=== PATIENT | male | born 1995 | race Caucasian/White ===

== ENCOUNTER 2020-08-19 20:13 | Emergency (ER) | payer SELFPAY ==
[2020-08-19] MEDS ORDERED: IBUPROFEN 800 MG TABLET PO ONE (20:31)
--- NOTE | 2020-08-19 20:34 | ER Document Report ---
ED Medical Screen (RME) - General Chief Complaint: Ankle Injury Stated Complaint: FALL/LEFT ANKLE INJURY Time Seen by Provider: 08/19/20 20:21 Mode of Arrival: Wheelchair Information source: Patient Notes: 24-year-old male presented to ED for injury to the left foot and ankle. He states he was at the [facility] when he fell with treatment of the area and the left ankle came down first and when he came down he heard a crunch. He states that happened between 730 and 745. He states the patient advocate from the ER was at the [facility] and brought him to the emergency room after he fell. He states he smokes 1 cigarette a week he binge drinks maybe once a month and does occasionally use marijuana. He has a past medical history of high blood pressure asthma and ADHD. He states his pain is a 2/5 when he is sitting and not moving it in a 4/5 if he touches it or puts any pressure on it. Patient is alert oriented respirations regular nonlabored speaking in full sen tences. I have greeted and performed a rapid initial assessment of this patient. A comprehensive ED assessment and evaluation of the patient, analysis of test results and completion of medical decision making process will be conducted by an additional ED providers. TRAVEL OUTSIDE OF THE [place] IN LAST 30 DAYS: No - HPI Onset: Just prior to arrival Onset/Duration: Sudden Quality of pain: Sharp, Throbbing Severity: Moderate Pain Level: 4 Associated Symptoms: Other - Pain swelling deformity left ankle Exacerbated by: Movement Similar symptoms previously: No Recently seen / treated by doctor: No - Related Data Allergies/Adverse Reactions: cat dander Allergy (Verified 08/19/20 20:29) grass pollen Allergy (Verified 08/19/20 20:29) dust Allergy (Uncoded 08/19/20 20:29) Past Medical History - Social History Frequency of alcohol use: Social Drug Abuse: Marijuana Renal/ Medical History: Denies: Hx Peritoneal Dialysis - Immunizations Immunizations up to date: Yes Hx Diphtheria, Pertussis, Tetanus Vaccination: Yes Physical Exam - Vital signs Vitals: Temp Pulse Resp BP Pulse Ox 99.4 F 100 12 145/87 H 98 08/19/20 20:23 08/19/20 20:23 08/19/20 20:23 08/19/20 20:23 08/19/20 20:23 Course - Vital Signs Vital signs: Temp Pulse Resp BP Pulse Ox 99.4 F 100 12 145/87 H 98 08/19/20 20:23 08/19/20 20:23 08/19/20 20:23 08/19/20 20:23 08/19/20 20:23
--- NOTE | 2020-08-19 21:18 | ER Document Report ---
ED Extremity Problem, Lower - General Chief Complaint: Ankle Injury Stated Complaint: FALL/LEFT ANKLE INJURY Time Seen by Provider: 08/19/20 20:21 Primary Care Provider: KAYLIN KEARNS MD [ACTIVE STAFF] - Follow up as needed CARSON HOLLIDAY MD [Primary Care Provider] - Follow up as needed Mode of Arrival: Wheelchair TRAVEL OUTSIDE OF THE [place] IN LAST 30 DAYS: No - HPI Notes: 24-year-old male presents with injury to his left ankle. Patient states that he was rollerskating this evening, around 7:30 PM. He states that he pushed off on his right leg, however his leg went too far, causing him to fall with his left ankle turning under him, states that he landed onto his left ankle and heard a crunch, then landed onto his buttocks. He denies head injury, no loss of consciousness. He denies injury to upper extremities or right leg. He complains of pain to the left ankle, worse when he has to to move it. He states that he has a past medical history of elevated blood pressure, but his doctor has told him to just lose weight, he is recently lost 15 pounds. He has history of childhood asthma and ADHD. - Related Data Allergies/Adverse Reactions: cat dander Allergy (Verified 08/19/20 20:29) grass pollen Allergy (Verified 08/19/20 20:29) dust Allergy (Uncoded 08/19/20 20:29) Past Medical History - General Information source: Patient - Social History Smoking Status: Current Some Day Smoker Frequency of alcohol use: Social Drug Abuse: Marijuana Family History: Reviewed & Not Pertinent - Past Medical History Cardiac Medical History: Reports: Hx Hypertension Pulmonary Medical History: Reports: Hx Asthma Renal/ Medical History: Denies: Hx Peritoneal Dialysis Psychiatric Medical History: Reports: Hx Attention Deficit Hyperactivity Disorder - Immunizations Immunizations up to date: Yes Hx Diphtheria, Pertussis, Tetanus Vaccination: Yes Review of Systems - Review of Systems Constitutional: No symptoms reported EENT: No symptoms reported Cardiovascular: No symptoms reported Gastrointestinal: No symptoms reported Genitourinary: No symptoms reported Male Genitourinary: No symptoms reported Musculoskeletal: See HPI Skin: Other - No wound Neurological/Psychological: denies: Weakness, Numbness Physical Exam - Vital signs Vitals: Temp Pulse Resp BP Pulse Ox 99.4 F 100 12 145/87 H 98 10/01/20 20:23 08/19/20 20:23 08/19/20 20:23 08/19/20 20:23 08/19/20 20:23 - General General appearance: Appears well, Alert In distress: None - HEENT Head: Normocephalic, Atraumatic Extraocular movements intact: Yes Pupils: PERRL Neck: Normal - Respiratory Breath sounds: Normal - Cardiovascular Rhythm: Regular Heart sounds: Normal auscultation Pulses: Normal: Dorsalis pedis Normal capillary refill: Yes - Abdominal Inspection: Obese Tenderness: Nontender - Extremities General upper extremity: Normal inspection, Normal ROM Notes: Pelvis stable. No tenderness to right lower extremity. There is swelling and deformity to the left ankle, there is tenderness to the medial lateral aspects. No tenderness to the L foot. No tenderness to the L knee. He has preserved range of motion of L foot and knee, decreased range of motion ankle. - Neurological Neuro grossly intact: Yes Cognition: Normal Orientation: AAOx4 - Psychological Associated symptoms: Normal affect - Skin Skin Temperature: Warm Notes: There is no wound to the left lower extremity Course - Re-evaluation Re-evalutation: 24-year-old male injured left ankle during a rollerskating accident. On exam he has a deformity to the left ankle with decreased range of motion, he has preserved pulse and normal cap refill. Intact range of motion to the left foot and knee. Foot/ankle imaging ordered via triage. I have preliminary reviewed the images and appears multiple fractures present, patient updated, I have added on a complete tib-fib view to assess for any proximal injury. Fentanyl ordered for pain. Will need sedation/reduction, then Ortho consult as it appears to be trimalleolar. 08/19/20 22:40 X-ray had confirmed a trimalleolar fracture. Patient underwent conscious sedation with fracture/dislocation reduction. Ankle stirrup splint applied, patient tolerated well. Repeat films ordered, appears to be successful. Will touch base with Ortho. 08/19/20 23:04 Hospital steam shovel operator to page on-call orthopedics 08/19/20 23:[address] Kearns and reviewed images. He has requested a CT of the ankle before discharge, patient can follow-up in his office. 08/20/20 00:00 Patient has returned to normal baseline. His brother is at bedside to take him home. I again we discussed with him need to follow-up with orthopedic surgery. Patient expressed that he may not be able to have transportation to [place], I will provide orthopedic contact information for [facility] practices in his discharge papers. I discussed with him nonweightbearing, use of crut ches, pain medications. He and his brother verbalized understanding. Patient to be provided with CD of imaging from today. Return precautions given, patient stable at time of discharge. - Vital Signs Vital signs: Temp Pulse Resp BP Pulse Ox 99.4 F 110 H 13 199/94 H 100 08/19/20 20:23 08/19/20 22:25 08/19/20 22:40 08/19/20 22:40 08/19/20 22:40 - Diagnostic Test Radiology reviewed: Image reviewed, Reports reviewed Procedures - Conscious Sedation Conscious sedation Time started: 22:10 Time completed: 22:30 Consent obtained: Yes Indication: Fracture reduction Last meal: Greater than 2 hours Normal healthy pt.: P1. - ASA Classification Airway Evaluation: Normal anatomy Mallampati Classification: Class 1 Used during procedure: Suction available, IV access obtained, Pulse ox on pt., bus monitor on pt. Medications administered: Ketamine I personally performed/intraservice time: Sedation, Procedure, 30 min or less Complications: No - Joint Reduction/Fracture Care Left Ankle Time completed: 22:30 Consent obtained: Yes Conscious sedation: Yes Pre-procedure NV exam: Yes Fracture: Closed Post-procedure NV exam: Yes Post-reduction x-ray: Joint reduced Reduction attempts: 1 Complications: No Notes: Once adequate sedation had been achieved, a combination of traction, downward force on tibial and upward force on the foot achieved reduction Discharge - Discharge Clinical Impression: Injury while roller skating Trimalleolar fracture of ankle, closed Qualifiers: Encounter type: initial encounter Laterality: left Qualified Code(s): S82.852A - Displaced trimalleolar fracture of left lower leg, initial encounter for closed fracture Disposition: HOME, SELF-CARE Instructions: Ankle Stirrup Splint ([facility]), Use of Crutches ([facility]), Oral Narcotic Medication ([facility]), Post Sedation Instructions ([facility]) Additional Instructions: Do not put any weight onto your left leg, use crutches at all time. While at rest, elevate leg. Use pain medication as needed. Please call Dr. Kearns's office in the morning to discuss follow-up. I have also provided contact information for orthopedics located in [place] if you are unable to travel to [place]. [facility]: [address] [place] [address] Toll-Free: [phone] Office: [phone] [facility] [place]: [address] [place] [address] Hours: 8am-5pm, Mon-; 8am-12pm, Fri (1st floor); [phone] (2nd floor) Toll Free: [phone] Prescriptions: Ibuprofen [Ibu] 800 mg PO Q8H #60 tablet Hydrocodone/Acetaminophen [[place]em 5-325 mg Tablet] 1 tab PO Q4H PRN 5 Days #30 tablet PRN Reason: For Pain Referrals: CARSON HOLLIDAY MD [Primary Care Provider] - Follow up as needed KAYLIN KEARNS MD [ACTIVE STAFF] - Follow up as needed
--- NOTE | 2020-08-19 21:26 | RADIOLOGY REPORT (SQ) ---
EXAM DESCRIPTION: XR ANKLE 3 OR MORE VIEWS COMPLETED DATE/TME: 08/19/2020 20:31 CLINICAL HISTORY: 24 years Male ,Fall left ankle injury deformity COMPARISON: None. TECHNIQUE: Left ankle, 3 view FINDINGS: Displaced fracture of the distal fibular diaphysis with valgus angulation. There is widening of the tibiofibular syndesmosis. Fracture of the medial malleolus and posterior malleolus. Additional fracture line extending along the distal tibia in the lateral projection likely is the adjacent fibular fracture. There is soft tissue swelling and joint effusion. There is posterior and lateral subluxation and eversion of the ankle. IMPRESSION: Fracture of the medial and posterior malleolus and the distal fibular diaphysis with posterior lateral displacement and angulation Widening of the tibiofibular syndesmosis
--- NOTE | 2020-08-19 21:28 | RADIOLOGY REPORT (SQ) ---
EXAM DESCRIPTION: XR FOOT 3 OR MORE VIEWS COMPLETED DATE/TME: 08/19/2020 20:31 CLINICAL HISTORY: 24 years ,Male Fall left ankle injury deformity COMPARISON: None. TECHNIQUE: LEFT foot, Three view FINDINGS: There is a fracture of the posterior and the medial malleolus. There is posterior and lateral subluxation of the foot and the distal fracture fragments. Widening of the tibiofibular syndesmosis. Fracture of the distal fibular diaphysis. IMPRESSION: Trimalleolar fracture subluxation with widening of the tibiofibular syndesmosis and posterior lateral displacement of the foot and the distal fracture fragments with respect to the distal tibia
[2020-08-19] MEDS ORDERED: FENTANYL CITRATE INJ/PF 100 MCG/2 ML AMPUL IV ONE (21:30)
[2020-08-19] MEDS ORDERED: KETAMINE HCL INJ 500 MG/10 ML VIAL IV ONE (22:05)
--- NOTE | 2020-08-19 22:08 | RADIOLOGY REPORT (SQ) ---
EXAM DESCRIPTION: XR TIBIA FIBULA 2 VIEWS COMPLETED DATE/TME: 08/19/2020 21:18 CLINICAL HISTORY: 24 years, Male, Known distal fracture, evaluate fibular head fxc COMPARISON: None. NUMBER OF VIEWS: 2 TECHNIQUE: 2 views left tibia fibula LIMITATIONS: None. FINDINGS: Comminuted fracture of the distal fibular diaphysis. Negative for proximal tibia or fibula fracture. Fracture deformities of the posterior and medial malleoli better seen on dedicated ankle films. IMPRESSION: Distal tibia/fibular fractures. No acute osseous abnormality involving the proximal tibia or fibula copyright 2010 [employer]- All Rights Reserved
--- NOTE | 2020-08-19 23:25 | RADIOLOGY REPORT (SQ) ---
CLINICAL HISTORY: POST REDUCTION COMPARISON: Earlier the same night. TECHNIQUE: XR ANKLE 2 VIEWS 08/19/2020 12:00 AM CDT FINDINGS: There is a persistent mildly displaced fracture of the medial malleolus. There is slightly improved alignment of distal fibular fracture. There has been reduction of tibiotalar subluxation. Soft tissues are unremarkable. IMPRESSION: Improved alignment following reduction.
--- NOTE | 2020-08-19 23:57 | RADIOLOGY REPORT (SQ) ---
EXAM DESCRIPTION: CT LOWER EXTREMITY WITHOUT IV CONTRAST COMPLETED DATE/TME: 08/19/2020 23:11 CLINICAL HISTORY: 24 years, Male, CT ankle, trimalleolar status post reduction COMPARISON: Plain films today's date TECHNIQUE: 374 Images stored on PACS. All CT scanners at this facility use dose modulation, iterative reconstruction, and/or weight based dosing when appropriate to reduce radiation dose to as low as reasonably achievable (ALARA). [facility]: Dose Right [facility]: CareDose [facility]: Dose Right [facility]: Teradose 4D [facility]: [employer] LIMITATIONS: None. FINDINGS: Displaced anterior medial malleolus fracture is noted. Comminuted mildly displaced Posterior malleolus fracture deformity is also present. Comminuted mildly displaced distal fibular diaphyseal fracture. The ankle mortise is otherwise intact. The subtalar joint space is preserved. No dary dislocation. Associated soft tissue swelling of the foot and ankle. IMPRESSION: Anteromedial and posterior tibial/malleolus fracture deformities with mild displacement. Comminuted mildly displaced distal fibular diaphyseal fracture. TECHNICAL DOCUMENTATION: Quality ID # [id number]: Final reports with documentation of one or more dose reduction techniques (e.g., Automated exposure control, adjustment of the mA and/or kV according to patient size, use of iterative reconstruction technique) copyright 2011 [employer]- All Rights Reserved
[2020-08-20] MEDS ORDERED: HYDROCODONE/ACETAMINOPHEN 5-325 MG (6 TAB/ER DISP) PO PRN
[2020-08-20 00:30] VITALS: BP 141/84
== END 2020-08-20 01:15 | disposition home or self-care (01) ==
LOC: ER 20:13
DX: S82.852A Displaced trimalleolar fracture of left lower leg, initial encounter for closed fracture (principal); V00.121A Fall from non-in-line roller-skates, initial encounter; Y93.51 Activity, roller skating (inline) and skateboarding; Z91.048 Other nonmedicinal substance allergy status; I10 Essential (primary) hypertension; F17.200 Nicotine dependence, unspecified, uncomplicated; F12.10 Cannabis abuse, uncomplicated
CPT/HCPCS: 99285; 99152; 96374; 73600; 73610; 73630; 73590; 73700; 27818; J3010; J3490

== ENCOUNTER 2020-08-30 09:53 | Day surgery (SDC) | payer SELFPAY ==
[~2020-08-30 09:53] MED LIST: ACETAMINOPHEN 325 MG TABLET PO PRN; CEFAZOLIN 2 GM/D5W RTU 2 GM/50 ML RTUPB IV PRN; GABAPENTIN 100 MG CAPSULE PO PRN; ONDANSETRON 4 MG TAB.RAPDIS PO PRN; OXYCODONE HCL SR 10 MG TABLET PO PRN; PANTOPRAZOLE SODIUM 20 MG TABLET.DR PO PRN; TRAMADOL HCL 50 MG TABLET PO PRN
[2020-08-30 10:51] LABS: APPEARANCE,URINE CLEAR; BILIRUBIN,URINE NEGATIVE (NEGATIVE); COLOR,URINE YELLOW; GLUCOSE, URINE NEGATIVE (NEGATIVE); KETONES,URINE NEGATIVE (NEGATIVE); LEUKOCYTE ESTERASE,URINE NEGATIVE (NEGATIVE); NITRITE,URINE NEGATIVE (NEGATIVE); PROTEIN,URINE NEGATIVE (NEGATIVE); URINE SPECIFIC GRAVITY 1.018; UROBILINOGEN,URINE NEGATIVE mg/dL (<2.0)
[2020-08-30 11:08] LABS: HEMATOCRIT 43.7 % (37.9-51.0); HEMOGLOBIN 15.2 g/dL (13.5-17.0); MEAN CORPUSCULAR HEMOGLOBIN 29.2 pg (27.0-33.4); MEAN CORPUSCULAR HGB CONC 34.7 g/dL (32.0-36.0); MEAN CORPUSCULAR VOLUME 84 fl (80-97); PLATELET COUNT 367 10^3/uL (150-450); RED CELL DISTRIBUTION WIDTH 13.2 % (11.5-14.0); WHITE BLOOD COUNT 8.7 10^3/uL (4.0-10.5)
[2020-08-30] MEDS ORDERED: CEFAZOLIN 2 GM/D5W RTU 2 GM/50 ML RTUPB IV ONE (11:12)
[2020-08-30 11:31] LABS: ANION GAP 15 (5-19); BLOOD UREA NITROGEN 12 mg/dL (7-20); CARBON DIOXIDE 25 mmol/L (22-30); CHLORIDE 100 mmol/L (98-107); GLUCOSE 95 mg/dL (75-110); POTASSIUM 4.4 mmol/L (3.6-5.0)
[2020-08-30] MEDS ORDERED: LIDOCAINE 1% INJ-PF (10 MG/ML) 30 ML SDV ONE (11:35)
[2020-08-30] MEDS ORDERED: BUPIVACAINE HCL 0.5 % INJ/PF 30 ML SDV ONE (11:35)
[2020-08-30] MEDS ORDERED: PROPOFOL INJ 200 MG/20 ML VIAL IV ONE (11:53)
[2020-08-30] MEDS ORDERED: MIDAZOLAM 2 MG/2 ML INJ ONE (11:53)
[2020-08-30] MEDS ORDERED: KETAMINE HCL INJ 500 MG/10 ML VIAL ONE (11:53)
[2020-08-30] MEDS ORDERED: ROPIVACAINE HCL 0.5% INJ/PF (5 MG/1 ML) 30 ML SDV ONE (12:07)
[2020-08-30] MEDS ORDERED: FENTANYL CITRATE INJ/PF 100 MCG/2 ML AMPUL ONE ×2 (12:25→12:27)
[2020-08-30] MEDS ORDERED: CEFAZOLIN INJ 1 GM VIAL ONE (12:59)
[2020-08-30] MEDS ORDERED: HYDROMORPHONE HCL INJ/PF 2 MG/ML AMPULE ONE (13:14)
[2020-08-30] MEDS ORDERED: GLYCOPYRROLATE 1 MG/5 ML VIAL ONE (13:44)
[2020-08-30] MEDS ORDERED: ROCURONIUM BROMIDE INJ 50 MG/5 ML VIAL IV ONE (13:44)
[2020-08-30] MEDS ORDERED: LIDOCAINE 2% INJ-PF (20 MG/ML) 2 ML AMPUL ONE (13:44)
[2020-08-30] MEDS ORDERED: SUCCINYLCHOLINE CHLORIDE INJ 200 MG/10 ML VIAL ONE (13:44)
[2020-08-30] MEDS ORDERED: DEXAMETHASONE SOD PHOSPHATE INJ 4 MG/1 ML VIAL ONE (13:44)
[2020-08-30] MEDS ORDERED: PHENYLEPHRINE HCL INJ/PF 10 MG/1 ML SDV ONE (13:44)
[2020-08-30] MEDS ORDERED: ONDANSETRON HCL INJ/PF 4 MG/2 ML SDV ONE (13:44)
[2020-08-30] MEDS ORDERED: NEOSTIGMINE METHYLSULFATE 10 MG/10 ML VIAL ONE (13:44)
[2020-08-30] MEDS ORDERED: MEPERIDINE HCL/PF INJ 25 MG/1 ML DISP.SYRIN IV PRN (14:09)
[2020-08-30] MEDS ORDERED: PROMETHAZINE HCL INJ 25 MG/1 ML VIAL IV PRN ×2 (14:09)
[2020-08-30] MEDS ORDERED: HYDROMORPHONE HCL INJ/PF 2 MG/ML AMPULE IV PRN (14:09)
[2020-08-30] MEDS ORDERED: DIPHENHYDRAMINE HCL 50 MG/ML VIAL IV PRN (14:09)
[2020-08-30] MEDS ORDERED: FENTANYL CITRATE INJ/PF 100 MCG/2 ML AMPUL IV PRN ×3 (14:09)
--- NOTE | 2020-08-30 15:26 | Operative Report ---
Operative Report DATE OF SURGERY: 08/30/20 PREOPERATIVE DIAGNOSIS: Left trimalleolar ankle fracture POSTOPERATIVE DIAGNOSIS: Left trimalleolar ankle fracture OPERATION: Left ankle trimalleolar open reduction internal fixation with syndesmotic tight rope SURGEON: SHARIF CHIU JR ANESTHESIA: GA COMPLICATIONS: None ESTIMATED BLOOD LOSS: 30 cc PROCEDURE: Patient was brought in operating suite and spinal anesthesia was attempted. After multiple attempts they were unsuccessful and decided to proceed with general anesthesia. The patient was then laid supine on the operating table placed under general anesthesia. Preoperatively they were provided with 3 g of Ancef. After adequate anesthesia the left lower extremities and prepped and d raped in standard sterile fashion. Appropriate timeout was performed followed by evaluation of the fracture under fluoroscopy. A pediatric nail was used to provide fixation to the fibula. Initially used a 1.8 mm K wire in order to gain access to the fracture site and establish the path for the nail. The incision for this was just distal to the fibula with a small poke hole type incision followed by spreading with a blunt hemostat. Additionally, a ball spike pusher was used to pry a reduction force across the distal segment through a small incision near the fracture site. After this I contoured the nail to allow for appropriate manipulation through the fracture site and fluoroscopy was used in order to ensure appropriate direction. After obtaining fibular fixation we turned our attention to the medial malleolus. An incision was centered over the medial malleolus fracture. This was carried through skin followed by blunt careful dissection down to the periosteum. There is a considerable amount of intervening periosteum within the fracture site which was thoroughly cleaned and identified with a Surprise elevator as well as curettes. After the fracture was delineated a K wire was used as a joystick to manipulate the segment back to its keyed in position. Once we had adequate reduction 2 K wires were placed through and finally a point reduction forcep was used to apply compression across the fracture site. Indicated position, the K wires were measured and self-tapping screws were used over the K wires. After this the K wires were then removed and we turned our attention to the posterior malleolus A Juan Luis tong was used to assist in posterior malleolar fracture reduction. Small stab incision was made posterior laterally and the Juan Luis tong was introduced and placed onto the posterior malleolus. The other arm of the Juan Luis tong was then placed anteriorly and the fracture was manipulated and reduced. With the assistance of fluoroscopy, 2 screws were placed from anterior to posterior. After this the Juan Luis tong was then removed. External rotation stress test was performed which demonstrated syndesmotic widening and increased medial clear space. The decision was made to proceed with a [employer] tight rope syndesmotic fixation. I attempted to pass the syndesmotic tight rope just posterior to the nail in order to assist in appropriate syndesmotic reduction. However, the drill bit made slight contact with the nail and actually passed the nail more proximal in the fibula. This did not appear to affect the reduction of the fibula and we were still able to apply the syndesmotic tight rope in standard fashion with appropriate tensioning. After this the sutures were cut and the buttons were ensured to be in good position with fluoroscopy. Subsequent stress view demonstrated no further syndesmotic widening or increased medial clear space. Final fluoroscopy was taken followed by copious irrigation of all wounds with dilute Betadine solution. After this a sterile dressing was placed followed by a posterior U plaster splint. The patient was then awakened from anesthesia and transferred to the PACU in stable condition where he will be getting a popliteal block. I did check the patient prior to the popliteal block and he remained neurovascular intact after the case.
[2020-08-30] MEDS ORDERED: RINGERS SOLUTION,LACTATED 1,000 ML IV PRN (15:29)
[2020-08-30] MEDS ORDERED: MORPHINE SULFATE 10 MG/ML INJ IV PRN (15:29)
[2020-08-30] MEDS ORDERED: OXYCODONE-ACETAMINOPHEN 5-325 MG TABLET PO PRN (15:29)
[2020-08-30] MEDS ORDERED: ONDANSETRON HCL INJ/PF 4 MG/2 ML SDV IV PRN (15:29)
--- NOTE | 2020-08-30 15:33 | RADIOLOGY REPORT (SQ) ---
EXAM DESCRIPTION: NO CHG FLUORO; ANKLE LEFT AP/LATERAL IMAGES COMPLETED DATE/TIME: 08/30/2020 3:11 pm REASON FOR STUDY: ORIF LEFT ANKLE S82.832A OTH FRACTURE OF UPPER AND LOWER END OF LEFT FIBULA, COMPARISON: None. FLUOROSCOPY TIME: 1.4 minutes 11 images saved to PACS. TECHNIQUE: Intra-operative images acquired during surgical procedure to evaluate progress. NUMBER OF IMAGES: 11 LIMITATIONS: None. FINDINGS: Pin and orthopedic screw fixation of trimalleolar fracture. IMPRESSION: IMAGE(S) OBTAINED DURING PROCEDURE. COMMENT: Quality ID 145: Final reports for procedures using fluoroscopy that document radiation exp osure indices, or exposure time and number of fluorographic images (if radiation exposure indices are not available) Please consult full operative report of the attending physician for description of the procedure. TECHNICAL DOCUMENTATION: JOB ID: [id number] 2010 [employer]- All Rights Reserved Reading location - IP/workstation name: [email or web address]
--- NOTE | 2020-08-30 15:33 | RADIOLOGY REPORT (SQ) ---
EXAM DESCRIPTION: NO CHG FLUORO; ANKLE LEFT AP/LATERAL IMAGES COMPLETED DATE/TIME: 08/30/2020 3:11 pm REASON FOR STUDY: ORIF LEFT ANKLE S82.832A OTH FRACTURE OF UPPER AND LOWER END OF LEFT FIBULA, COMPARISON: None. FLUOROSCOPY TIME: 1.4 minutes 11 images saved to PACS. TECHNIQUE: Intra-operative images acquired during surgical procedure to evaluate progress. NUMBER OF IMAGES: 11 LIMITATIONS: None. FINDINGS: Pin and orthopedic screw fixation of trimalleolar fracture. IMPRESSION: IMAGE(S) OBTAINED DURING PROCEDURE. COMMENT: Quality ID 145: Final reports for procedures using fluoroscopy that document radiation exp osure indices, or exposure time and number of fluorographic images (if radiation exposure indices are not available) Please consult full operative report of the attending physician for description of the procedure. TECHNICAL DOCUMENTATION: JOB ID: [id number] 2010 [employer]- All Rights Reserved Reading location - IP/workstation name: [email or web address]
[2020-08-30] MEDS ORDERED: OXYCODONE-ACETAMINOPHEN 5-325 MG TABLET ONE (16:20)
[2020-08-30 17:45] VITALS: BP 139/83
--- NOTE | 2020-08-30 19:54 | EKG REPORT ---
SEVERITY:- NORMAL ECG - SINUS RHYTHM : Confirmed by: Milan Watson 30-Aug-2020 19:53:49
--- NOTE | 2020-08-31 17:09 | Discharge Summary ---
Discharge Summary (SDC) - Discharge Final Diagnosis: left trimalleolar ankle fracture Date of Surgery: 08/30/20 Discharge Date: 08/30/20 Condition: Stable Forms: ASU Anesthesia D/C Instruction, Discharge POC-Surgical Service Treatment or Instructions: Nonweightbearing left lower extremity Maintain splint until seen in the office Follow-up in the office in approximately 10 days Take pain medications as prescribed Take 1 aspirin 325 mg by mouth daily for DVT prophylaxis for a matter of 6 weeks. Keep leg elevated as much as possible to decrease swelling and improve pain, may include long duration of ice at appropriate intervals for pain control. Referrals: SHARIF CHIU JR, DO [ACTIVE PROVISIONAL STAFF] - 09/10/20 10:30 am ANUM VALENCIA DO [Primary Care Provider] - Discharge Diet: As Tolerated Respiratory Treatments at Home: Deep Breathing/Coughing Discharge Activity: Activity As Tolerated, No Driving, Keep Legs Elevated, No Lifting Over 10 Pounds, No Lifting/Push/Pulling, Slowly Increase Activity, No tub bath Home Care Assistance: None Needed Adaptive Devices on Discharge: Axillary Crutches Report the Following to Your Physician Immediately: Shortness of Breath, Increase in Pain, Fever over 101 Degrees, Unusual Bleeding, Drainage-Foul Smelling
== END 2020-08-30 17:30 | disposition home or self-care (01) ==
LOC: OROUT 09:53
PROVIDERS: ATTEND Orthopaedic Surgery
DX: S82.832A Other fracture of upper and lower end of left fibula, initial encounter for closed fracture (principal); V00.121A Fall from non-in-line roller-skates, initial encounter; Y93.51 Activity, roller skating (inline) and skateboarding
CPT/HCPCS: 36415; 85027; 87635; 80048; 81001; 73600; 93005; 93010; 27822; C1713 ×7; C1769; J2795; J2250; J3490 ×5; J0690 ×2; J1100; J3010; J2710; J1170; J2370; J0330; J2405; J2704; C9803; 01480